=== PATIENT | female | born 1930 | race Caucasian/White ===

== ENCOUNTER 2017-10-05 21:54 | Emergency (ER) | payer MEDICARE, OTHER ==
[~2017-10-05] VITALS: Ht 157.5 cm; Wt 75.3 kg
[~2017-10-05 21:54] MED LIST: AMLO10 PO; AMLO5; ASPI325; ASPI81CH PO; ATEN100; ATEN100 PO; CEPH500 PO; CODBUTACEC PO; DIAZ5 PO; DOCU100 PO; FURO40; FURO40 PO; GUAPHELA; Klor-Con PO; LAVAP17G PO; LEVO750 PO; LOVA40 PO; METO50 PO; OMEP20ER PO; PANT40 PO; POTCHL20ER; WARF2 PO
== END 2017-10-05 23:45 | disposition home or self-care (01) ==
LOC: ER 21:54
DX: M25.562 Pain in left knee (principal); I25.2 Old myocardial infarction; I48.91 Unspecified atrial fibrillation; I10 Essential (primary) hypertension; Z88.8 Allergy status to other drugs, medicaments and biological substances; Z79.899 Other long term (current) drug therapy; Z79.01 Long term (current) use of anticoagulants; Z79.82 Long term (current) use of aspirin; Z86.73 Personal history of transient ischemic attack (TIA), and cerebral infarction without residual deficits
CPT/HCPCS: 73564; 96374; 99283; J2405

== ENCOUNTER 2018-04-26 07:32 | Emergency (ER) | payer MEDICARE, OTHER ==
[~2018-04-26] VITALS: Ht 170.2 cm; Wt 127.0 kg
[2018-04-26] MEDS ORDERED: LOSA25 (07:57)
[2018-04-26 08:13] LABS: BASOPHILS ABSOLUTE AUTO 0.04 K/mm3 (0.00-0.23); BASOPHILS PERCENT AUTO 0 % (0-2); EOSINOPHILS ABSOLUTE AUTO 0.07 K/mm3 (0.00-0.68); EOSINOPHILS PERCENT AUTO 1 % (0-6); Hemoglobin 15.2 g/dL (11.5-16.0); IMMATURE GRAN ABSOLUTE AUTO 0.04 K/mm3 (0.00-0.10); IMMATURE GRAN PERCENT AUTO 0 % (0-1); LYMPHOCYTES ABSOLUTE AUTO 2.26 K/mm3 (0.84-5.20); LYMPHOCYTES PERCENT AUTO 23 % (21-46); MONOCYTES ABSOLUTE AUTO 0.56 K/mm3 (0.16-1.47); MONOCYTES PERCENT AUTO 6 % (4-13); Mean Corpuscular HGB 30.3 pg (26.0-34.0); Mean Corpuscular HGB Conc 32.3 g/dL (31.5-36.5); Mean Corpuscular Volume 94 fL (80-100); Mean Platelet Volume 8.8 fL (9.1-12.4); NEUTROPHILS ABSOLUTE AUTO 6.74 K/mm3 (1.96-9.15); NEUTROPHILS PERCENT AUTO 69 % (41-73); Platelet Count 271 K/mm3 (150-400); RDW Coefficient Variation 12.2 % (11.7-14.2); RDW Standard Deviation 41.8 fL (35.1-46.3); Red Blood Cell Count 5.02 M/mm3 (3.80-5.20); White Blood Cell Count 9.71 K/mm3 (4.00-11.30)
[2018-04-26 08:40] LABS: Alanine Aminotransfer (ALT/SGP 13 U/L (12-78); Albumin, Blood 3.2 g/dL (3.4-5.0); Albumin/Globulin Ratio 0.8 (0.8-1.8); Alk Phos 98 U/L (50-136); Anion Gap 10 mmol/L (6-16); Aspartate Aminotrans (AST/SGOT 15 U/L (12-37); Bilirubin, Total 0.5 mg/dL (0.1-1.0); Blood Urea Nitrogen 10 mg/dL (8-24); Bun/Creatinine Ratio 29.6 (12.0-20.0); CO2, Blood 27 mmol/L (21-32); Calcium, Blood 8.9 mg/dL (8.5-10.1); Chloride, Blood 93 mmol/L (98-108); Creatinine, Blood 0.34 mg/dL (0.40-1.00); Globulin, Blood 4.2 g/dL (2.2-4.0); Glomerular Filtration Rate >60 (60-); Glucose, Blood 96 mg/dL (70-99); Potassium, Blood 4.1 mmol/L (3.5-5.5); Sodium, Blood 130 mmol/L (136-145); Total Protein, Blood 7.4 g/dL (6.4-8.2); Troponin I <0.015 ng/mL (0.000-0.040)
== END 2018-04-26 14:57 | disposition home or self-care (01) ==
LOC: ER 07:32
PROVIDERS: Emergency Medicine
DX: R07.89 Other chest pain (principal); R51 Headache; F41.9 Anxiety disorder, unspecified; I25.2 Old myocardial infarction; I48.91 Unspecified atrial fibrillation; I10 Essential (primary) hypertension; Z88.8 Allergy status to other drugs, medicaments and biological substances; Z79.899 Other long term (current) drug therapy; Z79.01 Long term (current) use of anticoagulants; Z79.82 Long term (current) use of aspirin; Z86.73 Personal history of transient ischemic attack (TIA), and cerebral infarction without residual deficits
CPT/HCPCS: 71045; 76705; 80053; 83690; 83880; 84484; 85025; 93005; 93010; 99285-25

== ENCOUNTER 2018-06-18 17:06 | Emergency (ER) | payer MEDICARE, OTHER ==
[~2018-06-18] VITALS: Ht 167.6 cm; Wt 180.0 kg
[~2018-06-18 17:06] MED LIST changes: +LOSA25
[2018-06-18 17:27] LABS: BASOPHILS ABSOLUTE AUTO 0.06 K/mm3 (0.00-0.23); BASOPHILS PERCENT AUTO 1 % (0-2); EOSINOPHILS ABSOLUTE AUTO 0.19 K/mm3 (0.00-0.68); EOSINOPHILS PERCENT AUTO 2 % (0-6); Hematocrit 41.2 % (33.0-51.0); Hemoglobin 13.4 g/dL (11.5-16.0); IMMATURE GRAN ABSOLUTE AUTO 0.03 K/mm3 (0.00-0.10); IMMATURE GRAN PERCENT AUTO 0 % (0-1); LYMPHOCYTES ABSOLUTE AUTO 3.22 K/mm3 (0.84-5.20); LYMPHOCYTES PERCENT AUTO 34 % (21-46); MONOCYTES ABSOLUTE AUTO 0.79 K/mm3 (0.16-1.47); MONOCYTES PERCENT AUTO 8 % (4-13); Mean Corpuscular HGB 30.5 pg (26.0-34.0); Mean Corpuscular HGB Conc 32.5 g/dL (31.5-36.5); Mean Corpuscular Volume 94 fL (80-100); Mean Platelet Volume 8.7 fL (9.1-12.4); NEUTROPHILS ABSOLUTE AUTO 5.31 K/mm3 (1.96-9.15); NEUTROPHILS PERCENT AUTO 55 % (41-73); Platelet Count 284 K/mm3 (150-400); RDW Coefficient Variation 12.4 % (11.7-14.2); RDW Standard Deviation 43.2 fL (35.1-46.3)
[2018-06-18 17:39] LABS: International Normalized Ratio 2.71; Prothrombin Time Results 26.4 Sec (9.7-11.5)
[2018-06-18 17:52] LABS: Troponin I <0.015 ng/mL (0.000-0.040)
[2018-06-18 17:53] LABS: Alanine Aminotransfer (ALT/SGP 13 U/L (12-78); Albumin, Blood 3.1 g/dL (3.4-5.0); Albumin/Globulin Ratio 0.8 (0.8-1.8); Alk Phos 87 U/L (50-136); Anion Gap 13 mmol/L (6-16); Aspartate Aminotrans (AST/SGOT 15 U/L (12-37); Bilirubin, Total 0.4 mg/dL (0.1-1.0); Blood Urea Nitrogen 12 mg/dL (8-24); Bun/Creatinine Ratio 33.6 (12.0-20.0); CO2, Blood 22 mmol/L (21-32); Calcium, Blood 8.7 mg/dL (8.5-10.1); Chloride, Blood 93 mmol/L (98-108); Creatinine, Blood 0.36 mg/dL (0.40-1.00); Globulin, Blood 3.8 g/dL (2.2-4.0); Glomerular Filtration Rate >60 (60-); Glucose, Blood 120 mg/dL (70-99); Potassium, Blood 3.6 mmol/L (3.5-5.5); Sodium, Blood 128 mmol/L (136-145); Total Protein, Blood 6.9 g/dL (6.4-8.2)
[2018-06-18] MEDS ORDERED: LEVE500 PO (20:23)
== END 2018-06-18 22:05 | disposition home or self-care (01) ==
LOC: ER 17:06
PROVIDERS: Emergency Medicine
DX: R56.9 Unspecified convulsions (principal); I25.2 Old myocardial infarction; I10 Essential (primary) hypertension; I48.91 Unspecified atrial fibrillation; Z86.73 Personal history of transient ischemic attack (TIA), and cerebral infarction without residual deficits; Z88.8 Allergy status to other drugs, medicaments and biological substances; Z79.899 Other long term (current) drug therapy; Z79.01 Long term (current) use of anticoagulants; Z79.82 Long term (current) use of aspirin
CPT/HCPCS: 36415; 70450; 71045; 80053; 82947; 84484; 85025; 85610; 93005; 93010; 96361; 96365; 96375; 99284-25; J1885; J1953; J2405; J7030

== ENCOUNTER 2019-01-24 18:59 | Inpatient (IN) | payer MEDICARE, OTHER ==
[~2019-01-24] VITALS: Ht 167.6 cm; Wt 72.6 kg
[~2019-01-24 18:59] MED LIST changes: -AMLO10 PO; +AMLO5 PO; +LEVE500 PO; -LOSA25; +LOSARTAN-HCTZ1 EAC2 PO; -OMEP20ER PO; +OMEPRAZOLE MAGN20 MG PO; +WARF1 PO; -WARF2 PO
[2019-01-24 19:19] LABS: BASOPHILS ABSOLUTE AUTO 0.07 K/mm3 (0.00-0.23); BASOPHILS PERCENT AUTO 0 % (0-2); EOSINOPHILS ABSOLUTE AUTO 0.02 K/mm3 (0.00-0.68); EOSINOPHILS PERCENT AUTO 0 % (0-6); Hemoglobin 14.2 g/dL (11.5-16.0); IMMATURE GRAN ABSOLUTE AUTO 0.13 K/mm3 (0.00-0.10); IMMATURE GRAN PERCENT AUTO 1 % (0-1); LYMPHOCYTES ABSOLUTE AUTO 4.07 K/mm3 (0.84-5.20); LYMPHOCYTES PERCENT AUTO 18 % (21-46); MONOCYTES ABSOLUTE AUTO 0.81 K/mm3 (0.16-1.47); MONOCYTES PERCENT AUTO 4 % (4-13); Mean Corpuscular HGB 30.3 pg (26.0-34.0); Mean Corpuscular HGB Conc 31.6 g/dL (31.5-36.5); Mean Corpuscular Volume 96 fL (80-100); Mean Platelet Volume 8.9 fL (9.1-12.4); NEUTROPHILS ABSOLUTE AUTO 17.32 K/mm3 (1.96-9.15); NEUTROPHILS PERCENT AUTO 77 % (41-73); Platelet Count 442 K/mm3 (150-400); RDW Coefficient Variation 12.7 % (11.7-14.2); RDW Standard Deviation 45.1 fL (35.1-46.3); Red Blood Cell Count 4.69 M/mm3 (3.80-5.20); White Blood Cell Count 22.42 K/mm3 (4.00-11.30)
[2019-01-24 19:21] LABS: PCO2 Arterial 42.3 mmHg (35-45); PO2 Arterial 344 mmHg (80-100); pH Blood Arterial 7.17 (7.35-7.45)
[2019-01-24 19:32] LABS: International Normalized Ratio 2.08; Prothrombin Time Results 20.6 Sec (9.7-11.5)
[2019-01-24 19:39] LABS: Alanine Aminotransfer (ALT/SGP 12 U/L (12-78); Albumin, Blood 3.1 g/dL (3.4-5.0); Albumin/Globulin Ratio 0.8 (0.8-1.8); Alk Phos 107 U/L (50-136); Anion Gap 19 mmol/L (6-16); Aspartate Aminotrans (AST/SGOT 25 U/L (12-37); Bilirubin, Total 0.5 mg/dL (0.1-1.0); Blood Urea Nitrogen 12 mg/dL (8-24); Bun/Creatinine Ratio 34.3 (12.0-20.0); CO2, Blood 16 mmol/L (21-32); Calcium, Blood 9.2 mg/dL (8.5-10.1); Chloride, Blood 93 mmol/L (98-108); Creatinine, Blood 0.35 mg/dL (0.40-1.00); Globulin, Blood 4.1 g/dL (2.2-4.0); Glomerular Filtration Rate >60 (60-); Glucose, Blood 228 mg/dL (70-99); Potassium, Blood 4.3 mmol/L (3.5-5.5); Sodium, Blood 128 mmol/L (136-145); Total Protein, Blood 7.2 g/dL (6.4-8.2)
[2019-01-24 20:22] LABS: Source, Urine Clean Catch
[2019-01-24 20:25] LABS: Bilirubin, Urine Neg (Neg); Blood, Urine 1+ (Neg); Glucose Qualitative, Urine Neg (Neg); Ketones, Urine 4+ (Neg); Leukocyte Esterase, Urine Neg (Neg); Nitrite, Urine Neg (Neg); Protein, Urine 2+ (Neg); Specific Gravity, Urine 1.015 (1.003-1.022); Urobilinogen, Urine NORM (Normal)
[2019-01-24 20:30] LABS: Appearance, Urine Clear (Clear); Color, Urine Yellow (P-Yellow); White Blood Cells, Urine 0-2 /hpf (0-5)
[2019-01-24 20:31] LABS: Bacteria Few /hpf; Renal Epithelial Few /hpf (0-Rare); Squamous Epithelial Cells Few /hpf (Few)
--- NOTE | 2019-01-25 11:08 | NUR ---
COMFORT CARE ASSESSMENT AND VISIT - Pt admitted to hospital and comfort care yesterday, aftersecond ER visit this WE. Pt has a hx of CVA 5 yrs ago and disability/bedbound x years now. Pt is supine in bed with nasal trumpet and nasal canula O2. No respiratory distress noted. She is pale. Eyes are closed and no reaction noted to conversation or touch. She has an indewelling grimes cath with clear yellow urine noted of approx 300-400 ml. in drainage bag. Two family members are at bedside and talking/tending to her. No nonverbal indicators noted of pain, anxiety, distress, agition or dyspnea noted. Pt has pitting edema of feet, that are warm and covered with socks. She has multiple blankets on and feels warm, dry to touch. Spent time talking with family and assessing pt. She liked to quilt and to order clothing out of mail order catalogues. 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 She enjoyed camping, with a group of these women's friends. I listened to family reminisce and joke about shared experiences with Reyna. Spoke with RN also regarding my visit. I brought a quilt to her bed and removed some of the extra bedding and gave a lavender sachet to the two family members in the room. I asked that they let us know if they needed anything and informed I would return tomorrow or sooner as needed. They both expressed great satisfaction with the care Reyna is receiving and her observed level of comfort and peace.
--- NOTE | 2019-01-25 13:17 | NUR ---
[facility] care visit conducted. Patient's daughter, Missy is bedside as patient lies in bed unresponsive. I facilitated a brief life review, covering family, claudine and patient's personality. Missy is anticipating grief but is also thankful patient can rest now and no longer has to struggle and work through pain. I listened empathically, facilitated a life review, explored patient's belief system, provided emotional support and provided prayer. Missy responded well and showed signs of being comforted. I will continue to remain available to patient and family.
--- NOTE | 2019-01-25 19:25 | NUR ---
SHIFT SUMMARY. PT WITHOUT ANY S/SX OF DISTRESS OR DISCOMFORT, NO DYSPNEA, N/V. PT UNRESPONSIVE. RIVERA PATENT. DAUGHTER AT BEDSIDE THROUGHOUT SHIFT. SPIRITUAL CARE IN TO SEE PT AND DAUGHTER THIS AFTERNOON. 1730 OXYGEN TAKEN OFF PT, DAUGHTER AGREED WITH PLAN OF CARE. NO NEW CHANGES.
--- NOTE | 2019-01-26 04:43 | NUR ---
Shift summary: Pt on comfort care. Breathing very shallow all shift but no resp distress noted. Family at bedside. Very little urine output. Pt unresponsive.
--- NOTE | 2019-01-26 09:45 | NUR ---
COMFORT CARE VISIT AND ASSESSMENT DONE. PT HAS THREE FAMILY MEMBERS AT BEDSIDE. THEY REPORT LITTLE CHANGE FROM YESTERDAY. PT APPEARS MORE DEHYDRATED AND RESPIRATIONS MORE SHALLOW THAN YESTERDAY. SHE REMAINS COMATOSE AND UNRESPONSIVE. FURROWED BROW NOTED AND OCCAISSIONAL "YAWNING" REPORTED BY FAMILY MEMBER. FAMILY DENIES NEED FOR ANY ADDITIONAL SUPPORT. SPOKE WITH RN RE: VISIT.
--- NOTE | 2019-01-26 14:47 | NUR ---
Spiritual care visit conducted. I sat with Silva, Patient's daughter and she shared about the family unit complications, about the the kind of relationship she has with the patient and about how she sees the family will behave after the patient expires. I listened empathically, provided pastoral preparole counseling aide and provided a calming presence. Silva responded well and thanked me for my visit.
--- NOTE | 2019-01-26 16:42 | NUR ---
PT HAS RESTED COMFORTABLY WITH NO S/SX OF DISTRESS OR DISCOMFORT THIS SHIFT. UNARROUSABLE. DAUGHTER AT BEDSIDE ENTIRE SHIFT, OTHER FAMILY IN TO VISIT INTERMITTENTLY. BREATHING NONLABORED. MINIMAL URINE OUTPUT. RIVERA PATENT. FAMILY AGREES WITH PLAN OF CARE.
--- NOTE | 2019-01-27 04:26 | NUR ---
sHIFT SUMMARY. Pt remains on comfort care. Pt has not needed anything for pain or anxiety during the night. Respirations very shallow. Pt non- responsive. Family at bedside. Pt had 200 cc urine output last pm.
--- NOTE | 2019-01-27 08:30 | NUR ---
COMFORT CARE ASSESSMENT AND VISIT. ALESSANDRA AT BEDSIDE AND STAYING OVERNIGHT. PT REMAINS COMATOSE WITH SHALLOW BREATHING. WARM AND DRY TO TOUCH ON FACE, EXTREMITIES MORE COOL. APPROX 100 CC DK URINE IN RIVERA DRAINAGE BAG. ALESSANDRA DENIES NEEDS. RN HAD JUST RESTOCKED COMFORT CART. I DID NOT OBSERVE ANY NONVERBAL INDICATORS OF PAIN OR DISTRESS. WILL REMAIN AVAILABLE.
--- NOTE | 2019-01-27 09:02 | NUR ---
REALLY RFA LOCATION.
--- NOTE | 2019-01-27 09:03 | NUR ---
SHE HAS EVEN SHALLOW BREATHS AT 18 PER MINUTE. NO RESP DISTRESS. SHE LOOKS VERY COMFORTABLE. DRINKS REFILLED FOR FAMILY COMFORT FOOD CART. DAUGHTER AT BEDSIDE VERY PLEASANT.
--- NOTE | 2019-01-27 10:12 | NUR ---
SHE HAS RECEIVED A THOROUGH BED BATH AND ALHAJI/CATH CARE. HER RIVERA HAD BEEN LEAKING. ALL LINEN CHANGED. 10 MLS STERILE NS ADDED TO BALLOON. NO LEAKING AT PRESENT. DAUGHTER AT BEDSIDE. SHAE MAD A SLIGHT VERBAL NOISE TWICE DURING ALL THE CARE. SHE LOOKED COMFORTABLE THE WHOLE TIME. RESPIRATIONS ARE REGULAR.
--- NOTE | 2019-01-27 11:45 | NUR ---
Pt. is lying in bed unable to talk she is on comfort care , encouraged the family members and prayed for the pt.
--- NOTE | 2019-01-27 12:27 | NUR ---
HER ATTENDS REMAIN DRY. THERE IS URINE IN THE RIVERA BAG. RESPIRATIONS ARE UNLABORED. SHE LOOKS VERY COMFORTABLE. SHE ACTUALLY HAS 3 PERIPH IV SITES, RH.RFA AND L SHOULDER. 4 FAMILY MEMBERS AT BEDSIDE VISITING AMONGST THEMSELVES. SHE IS UNRESPONSIVE.
--- NOTE | 2019-01-27 13:25 | NUR ---
Spiritual care visit conducted. Patient continues in the end of life process with daughter Missy negrete. Family members from out of state have arrived and patient is constantly surrounded by family. I provided a calming presence, companionship and emotional support. Family responded well. I continue to be available to family.
--- NOTE | 2019-01-27 14:03 | NUR ---
NO CHANGE IN HER CONDITION. NO CYANOSIS. U.O. LOW. RESPIRATIONS REGULAR AT 18/MIN.
--- NOTE | 2019-01-27 17:51 | NUR ---
HER 16FR RIVERA CONTINUED TO SLOWLY LEAK AFTER I ADDED WATER TO THE BALLOON. I REPLACED IT WITH AN 18FR RIVERA. WILL MONITOR IT. NO BM TODAY.
--- NOTE | 2019-01-27 18:19 | NUR ---
SHE HAS BEEN COMFORTABLE ALL DAY WITHOUT MEDICATION. HER DAUGHTER HAS BEEN AT THE BEDSIDE. WE HAVE TURNED AND CHANGED HER. NEW 18FR RIVERA IN PLACE. SHE SHOULD STAY DRY NOW UNLESS SHE HAS A BM. 4X4 FOAM PATCH PUT ON BUTTOCK OVER A CLEAN SHALLOW OPENING IN THE SKIN EARLIER TODAY WHEN SHE HAD A BEDBATH. RESPIRATIONS HAVE BEEN REGULAR ALL DAY. NO CYANOSIS. FEET ARE COLD. HEELS FLOATED.
--- NOTE | 2019-01-27 22:17 | NUR ---
family refused the pt's keppra iv. Pt comatose and on comfort care. No s/s seizures for many days.
--- NOTE | 2019-01-28 03:57 | NUR ---
Shift summary: Pt remains just about the same. Pt comatose and breathing very shallow. Family at bedside. No changes overnight. Pt on comfort care only care only.
--- NOTE | 2019-01-28 07:40 | NUR ---
SHE IS RESTING COMFORTABLY. RESPIRATIONS REGULAR. SMALL AMT OF URINE IN THE RIVERA BAG. NO CYANOSIS. HER DAUGHTER SAYS HER MOTHER TOLD HER BACK THAT SHE LOVED HER TOO DURING THE NIGHT.
--- NOTE | 2019-01-28 10:09 | NUR ---
SHE HAS 3 FAMILY MEMBERS AT BEDSIDE NOW. NO DISTRESS. NO CHANGES.
--- NOTE | 2019-01-28 11:16 | NUR ---
Pt. is lying in bed on comfort-care the family members are in the in the room waiting when the Good Lord will call her home. Provided the family nwith spiritual and emotional support and offered prayers for the pt.
--- NOTE | 2019-01-28 11:20 | NUR ---
Pt. is sitting up on his bed and talking with his visitor in the room , ptt. reports doing fine encouraged pt. and prayed for him.
--- NOTE | 2019-01-28 11:50 | NUR ---
Pt visit this AM. Pt resting in bed with her eyes closed and appears comfortable. No signs of distress at this time. Pt's daughter present and she reports no concerns at this time. Daughter expresses apreciation of Pt's comfort. Spoke with Pt's bedside nurse Brii and reports concern of Pt still receiving IV Keppra. Suggested medication is considered a comfort medication. No other concerns reported at this time. Palliative Care will remain available for symptom management.
--- NOTE | 2019-01-28 12:21 | NUR ---
RFA SEAN DC'D D/T INFILTRATION. SHE APPEARS COMFORTABLE WITH REGULAR RESPIRATIONS. NO WORDS TODAY. GRIMACED ONCE WHEN I WAS CLEANING HER EYE SECRETIONS AWAY.
--- NOTE | 2019-01-28 15:10 | NUR ---
SHE APPEARS COMFORTABLE BUT HER RESPIRATORY RATE IS 24/MIN. HER DAUGHTER HAD A BREAK BUT IS BACK NOW. SHAE SHOOK HER HEAD "YES" TO HER DAUGHTER'S QUESTION EARLIER. SHE KEEPS HER EYES CLOSED. SHE DIDN'T LIKE ORAL CARE CLOSING TIGHTER. NO CYANOSIS. NO DISTRESS.
--- NOTE | 2019-01-28 16:09 | NUR ---
NO CHANGES. SHE HAS BEEN TURNED. SHE HAS REMAINED CLEAN AND DRY TODAY. RIVERA PATENT.
--- NOTE | 2019-01-28 18:20 | NUR ---
SHE NODS YES TO MY QUESTION IS SHE COMFORTABLE. RESP REGULAR AT 20/MIN. I JUST EMPTIED 300 MLS JULIO URINE FROM HER RIVERA BAG FOR THE SHIFT. NO PO INTAKE. EYES ALWAYS CLOSED. NO DISTRESS. DAUGHTER JUST RETURNED AGAIN.
--- NOTE | 2019-01-28 21:43 | NUR ---
FAMILY AT BEDSIDE. FAMILY WOULD LIKE PATIENT TO BE REPOSITIONED ONCE A SHIFT. RIVERA DRAINING WELL.
--- NOTE | 2019-01-29 05:55 | NUR ---
SHIFT SUMMARY PATIENT IS ON COMFORT CARE. FAMILY IN ROOM AT BEDSIDE. FAMILY REQUESTS THAT PATIENT ONLY BE REPOSITIONED ONCE THROUGHOUT THE SHIFT. PATIENT HAS APPEARED COMFORTABLE THROUGHOUT THE NIGHT, NO FACIAL GRIMACING, NO LABORED BREATHING.
--- NOTE | 2019-01-29 10:28 | NUR ---
Brief PC visit this morning. Spoke with nursing and rec'd an update. Pt's daugther is at her bedside talking with pt's APD gearcase assembler, Bailey. Reyna appears comfortable at this time. She had received a dose of roxinol approximately 45 minutes prior to my visit for some tachypnea. She is resting quietly. Did not check for swelling or mottling at this time as pt's dtr and gearcase assembler were having a discussion. Nursing states they have no concerns at this time. PC will continue to monitor symptoms and provide support. No periods of apnea noted during this visit.
--- NOTE | 2019-01-29 11:32 | NUR ---
Spiritual care visit conducted. Patient continues to show signs of end of life and many family members continue to visit patient and keep her surrounded by love and support. I encouraged self care to family memebers, provided a calming presence and provided prayer. Family members teared up during the prayer but stated that they appreciate the prayers. I will continue to be available to family.
--- NOTE | 2019-01-29 14:03 | NUR ---
Pt. is lying in bed and is in comfort-care , family members in the room waiting prayed for the pt.
--- NOTE | 2019-01-29 19:33 | NUR ---
SHIFT SUMMARY PT SLEEPING COMFORTABLY THROUGHOUT THE SHIFT. ONE EPISODE OF RAPID RESPIRATIONS, MEDICATED PER EMAR. PT SKIN WAS NOT MOTTLED THOUGH BLE SWOLLEN. 250 ML URINE OUT THIS SHIFT. FAMILY PRESENT THROUGHOUT THE DAY WHO COMPLETED ORAL CARE REGULARLY AND REFUSED REPOSITIONING. BED IN LOW POSITION, CALL LIGHT WITHIN REACH.
--- NOTE | 2019-01-29 20:12 | NUR ---
PATIENT ON COMFORT CARE. FAMILY LEFT FOR EVENING. IV KEPPRA INFUSING. BEDFAST AND SLEEPING. WILL CONTINUE TO MONITOR.
--- NOTE | 2019-01-30 04:28 | NUR ---
SHIFT SUMMARY PATIENT IS ON COMFORT CARE. FAMILY PRESENT IN ROOM T/O SHIFT. PIV REMAINS INTACT. IV KEPPRA INFUSED. RIVERA PATENT AND DRAINING. NO S/SX OF PAIN AND N/V. FAMILY REFUSING REPOSITIONING AT THIS TIME. ORAL CARE PROVIDED. PATIENT SLEEPING COMFORTABLY. CALL LIGHT IN REACH. BED IN LOWEST POSITION. WILL CONTINUE TO MONITOR UNTIL DAY SHIFT NURSE ASSUMES CARE.
--- NOTE | 2019-01-30 18:37 | NUR ---
SHIFT SUMMARY SHAE IS RESTING COMFORTABLY. NON-VERBAL BUT ABLE TO ANSWER YES OR NO QUESTIONS. DID SAY SHE WAS IN PAIN TWICE THIS SHIFT, FOR WHICH SHE RECEIVED ROXANOL AND IV DILAUDID TO GOOD EFFECT. PAIN WAS IN HER L ARM AND CHEST. MORE LETHARGIC THIS EVENING. CHANGED AND TURNED TWICE AFTER SM SCAN AMT OF LIQUID FROM ALHAJI AREA. L BUTTOCK SORE AND R SACRAL SORE, TURNED OFTEN COMFORTABLE FOR PT. RIVERA CARE DONE X2. FAMILY AT BEDSIDE. FREQUENT CHECKS, WCTM
--- NOTE | 2019-01-30 20:43 | NUR ---
ATROPINE DROPS GIVEN FOR EXCESSIVE SECRETIONS PRN. IV KEPPRA INFUSED. FAMILY PRESENT IN ROOM. PATIENT RESTING.
--- NOTE | 2019-01-31 04:18 | NUR ---
SHIFT SUMMARY PATIENT IS ON COMFORT CARE. BEDFAST AND NON-VERBAL WITH YES/NO ANSWERS AT TIMES. ATROPINE DROPS GIVEN FOR EXCRETIONS PER EMAR X TWO. RIVERA PATENT AND DRAINING. NEW MEPILEX PLACED ON COCCYX. DAUGHTER STAYS T/O SHIFT. PIV REMAINS INTACT. IV KEPPRA INFUSED. DILAUDID GIVEN X ONE FOR GENERAL PAIN. ORAL CARE PROVIDED. CALL LIGHT IN REACH OF FAMILY. BED IN LOWEST POSITION. WILL CONTINUE TO MONITOR UNTIL DAY SHIFT NURSE ASSUMES CARE.
--- NOTE | 2019-01-31 07:30 | NUR ---
PT RESTING QUIETLY RR EVEN AND UNLABORED. CURRENTLY SEMIFOWLERS AND FLOATED WITH PILLOWS OFF OF BONY PROMINENCES. COMFORT CART AT BEDSIDE. MEPILEX APPLIED TO SACRUM.
--- NOTE | 2019-01-31 12:23 | NUR ---
ASSESSMENT PATIENT RESTING COMFORTABLY. ORAL CARE COMPLETED AND MOISTURIZER APPLIED TO MOUTH AN LIPS. PATIENT TURNED
--- NOTE | 2019-01-31 17:30 | NUR ---
ASSESSMENT PATIENT TURNED, ORAL CARE PREFORMED, PAIN ASSESSED. PATIENT RESTING WELL
--- NOTE | 2019-01-31 18:40 | NUR ---
SHIFT ASSESSMENT PATIENT RESTING WELL- IN NO ACUTE DISTRESS. SHE HAS DENIED PAIN MOST OF THE DAY SHE IS CAPABLE OF SHAKING HEAD NO AND YES. DAUGHTER IS BY HER SIDE. Q2 TURNS AND PAIN HAS BEEN ADDRESSED
--- NOTE | 2019-02-01 03:31 | NUR ---
SHIFT SUMMARY PATIENT IS ON COMFORT CARE. BEDFAST AND NON-VERBAL WITH YES/NO ANSWERS AT TIMES. RIVERA IS PATENT AND DRAINING. NO S/SX OF PAIN. DAUGHTER PRESENT T/O SHIFT. PIVS REMAIN INTACT. IV KEPPRA INFUSED. ORAL CARE PROVIDED AND REPOSITIONING.
--- NOTE | 2019-02-01 13:07 | NUR ---
Pt. is lying in bed sleeping on comfort-care the daughter , fore the pt. there is no change,,prayed for her.
--- NOTE | 2019-02-01 13:46 | NUR ---
Palliat comfort care visit at 1100 this morning. Pt appears to be resting comfortably at this time. Her daughter is at bedside and stated that pt "had a rough morning." She states that pt was very painful with turning this morning and that the plan going forward is to premedicate pt for turning so that she doesn't become anxious and painful again when care is provided. Reyna slept through the visit. No periods of apnea noted at this time. No mottling noted to hands or legs, did not turn pt to look for dependent mottling at this time as she was very uncomfortable during turning earlier today. Her skin is warm to touch. Her daughter reports that she would like to take Reyna home to care for her but she is concerned about the IV keppra to prevent seizures and how that would be administered. Td is also concerned about discomfort associated with transporting her home. Explained to her that staff could arrange a gurney transport home and pre-medicate her for the trip. Spoke with pharmacist and only other option for IV keppra would be the oral keppra liquid. Pt is unable to safely swallow. Spoke with Sybil Overton CM RN, who contacted local hospice companies to see if IV keppra would be an option at home with hospice. Sybil stated she would follow up with hospice and pt's dtr to determine a plan. Pt's dtr stated that pt has days when she has apnea periods and days when she doesn't. Pt doesn't appear imminent at this time. If she declines rapidly, a discharge with hospice would likely not be appropriate.
--- NOTE | 2019-02-01 18:36 | NUR ---
PT NON RESPONSIVE THIS AFTERNOON, AGONAL RESPIRATIONS NOTED AT THIS TIME. WILL CONTINUE TO MONITOR
--- NOTE | 2019-02-01 18:39 | NUR ---
PT'S DAUGHTER CALLED THIS RN TO ROOM, PT IN BED WITH NOT OBSERVABLE BREATHING, NO PULSE FOUND AND NO HEARTBEAT HEARD. CARTON STAPLER NOTIFIED.
--- NOTE | 2019-02-01 19:30 | NUR ---
Pt passed and duaghter at bedside. supportive vist for stress and giref and funneral planning.
--- NOTE | 2019-02-01 22:22 | NUR ---
[facility] HERE TO TAKE PT. BELONGING'S WENT WITH PT'S DAUGHTER DURING SHIFT REPORT.
== END 2019-02-01 18:39 | DRG 951 ==
LOC: ER 18:59 → MEDS 22:06
PROVIDERS: Emergency Medicine; ADMIT Internal Medicine
PROC: 3E053XZ Introduction of Vasopressor into Peripheral Artery, Percutaneous Approach (ICD-10-PCS; principal; 2019-01-24)
DX: Z51.5 Encounter for palliative care (principal); A41.9 Sepsis, unspecified organism; R65.21 Severe sepsis with septic shock; I62.9 Nontraumatic intracranial hemorrhage, unspecified; C79.31 Secondary malignant neoplasm of brain; C78.00 Secondary malignant neoplasm of unspecified lung; E87.2 Acidosis; C79.9 Secondary malignant neoplasm of unspecified site; I48.2 Chronic atrial fibrillation; C43.9 Malignant melanoma of skin, unspecified; Z79.01 Long term (current) use of anticoagulants; I10 Essential (primary) hypertension; Z66 Do not resuscitate; G40.909 Epilepsy, unspecified, not intractable, without status epilepticus
CPT/HCPCS: 36415; 36600; 51702; 70450; 71045; 80053; 81001; 82803; 83605; 84484; 85025; 85610; 86900; 86901; 87040; 93005; 93010; 96365-59; 96367-59; 96368; 96372-59; 96375-59; 99285-25; J1100; J1170; J1953; J2060; J2543; J3370; J7030; J7060; J7120; Q2009